=== PATIENT | male | born 1940 | race Caucasian/White ===

== ENCOUNTER → 2017-12-29 | Outpatient (CLI) | payer MEDICARE, OTHER ==
[~2017-12-29] MED LIST: ASPIRIN E.C. 8181 MG PO; FERROUS SU325 MG/TAB PO; FIBER TABLETS1 TAB PO; FOLIC ACID 40400 MCG PO; LORTAB 5/500 501 TAB PO; LORTAB 7.5/5001 TAB PO; LOTENSIN 1010 MG/TAB PO; MULTIPLE VITAMI1 CAP PO; NORFLEX 10100 MG/TAB PO; VITAMIN C500 MG PO; XARELTO10 MG PO; ZOCOR5 MG PO
== END ==
LOC: COL.RAD 10:47
DX: I35.0 Nonrheumatic aortic (valve) stenosis (principal); K44.9 Diaphragmatic hernia without obstruction or gangrene